=== PATIENT | male | born 1995 | race Caucasian/White ===

== ENCOUNTER 2017-12-30 05:47 | Emergency (ER) | payer OTHER ==
--- NOTE | 2017-12-30 08:19 | RAD ---
AP VIEW PELVIS: Date: 12/30/17 HISTORY: 22-year-old with history of fall. FINDINGS: AP view pelvis demonstrates the pelvis to be unremarkable. No evidence of pelvic fractures, subluxati ons, or bony lesions seen. IMPRESSION: Unremarkable AP view pelvis. POS: [facility]
--- NOTE | 2017-12-30 09:16 | RAD ---
2 VIEWS RIGHT HIP: Date: 12/30/17 HISTORY: Fall off of [address] with right hip pain. FINDINGS: AP and frog-leg views of the right hip are obtained and demonstrate no evidence of right hip fracture s, subluxations, or bony lesions. IMPRESSION: Normal 2 views right hip. POS: [facility]
== END 2017-12-30 07:07 | disposition home or self-care (01) ==
LOC: ERS 05:47
DX: S70.01XA Contusion of right hip, initial encounter (principal); F17.200 Nicotine dependence, unspecified, uncomplicated; W05.0XXA Fall from non-moving wheelchair, initial encounter
CPT/HCPCS: 72170